=== PATIENT | female | born 1990 | race Caucasian/White ===

== ENCOUNTER 2022-01-01 13:00 | Inpatient (IN) | payer OTHER ==
[~2022-01-01] VITALS: Ht 162.6 cm; Wt 90.3 kg
[2022-01-10] MEDS ORDERED: PRENATAL CAPLE1 EAC1 (17:32)
== END 2022-01-13 11:34 | disposition home or self-care (01) | DRG 807 ==
LOC: LDR 01-10 17:11 → OB/GYN 01-11 10:05
PROVIDERS: ADMIT Specialist; ATTEND Specialist
PROC: 4A1HXCZ Monitoring of Products of Conception, Cardiac Rate, External Approach (ICD-10-PCS; 2022-01-10)
PROC: 10E0XZZ Delivery of Products of Conception, External Approach (ICD-10-PCS; principal; 2022-01-11)
PROC: 0W8NXZZ Division of Female Perineum, External Approach (ICD-10-PCS; 2022-01-11)
DX: O99.820 Streptococcus B carrier state complicating pregnancy (principal); Z37.0 Single live birth; Z3A.39 39 weeks gestation of pregnancy; Z20.822 Contact with and (suspected) exposure to COVID-19